=== PATIENT | male | born 1985 | race Two or more races ===

== ENCOUNTER 2021-11-06 01:06 | Emergency (ER) | payer SELFPAY ==
[2021-11-06] MEDS ORDERED: Ondansetron 4 MG/2 ML SDV IVPUSH ONE (01:33)
[2021-11-06] MEDS ORDERED: Sodium Chloride 0.9% 1,000 ML IV SCH (01:45)
== END 2021-11-06 02:34 | disposition home or self-care (01) ==
LOC: JD.ED 01:06
DX: S00.03XA Contusion of scalp, initial encounter (principal); F10.129 Alcohol abuse with intoxication, unspecified; Z72.0 Tobacco use; W00.0XXA Fall on same level due to ice and snow, initial encounter
CPT/HCPCS: 70450; 70450-26; 99284-25

== ENCOUNTER 2023-03-17 15:19 | Emergency (ER) | payer SELFPAY ==
[2023-03-17] MEDS ORDERED: Diphtheria,Pertussis(Acell),Tetanus Vaccine 0.5 ML Syringe IM ONE (16:16)
[2023-03-17] MEDS ORDERED: Lidocaine 1% 10 ML MDV INJECT ONE (16:16)
== END 2023-03-17 17:45 | disposition home or self-care (01) ==
LOC: JD.ED 15:19
DX: S01.511A Laceration without foreign body of lip, initial encounter (principal); Z86.16 Personal history of COVID-19; Z23 Encounter for immunization; W26.8XXA Contact with other sharp object(s), not elsewhere classified, initial encounter; Y99.0 Civilian activity done for income or pay
CPT/HCPCS: 12011; 90471; 90715; 99282-25; J3490

== ENCOUNTER 2023-04-30 20:16 | Emergency (ER) | payer OTHER ==
[2023-04-30] MEDS ORDERED: Ondansetron 8 MG in Sodium Chloride 0.9% 50 ML IV ONE (20:28)
[2023-04-30] MEDS ORDERED: HYDROmorphone 0.5 MG/0.5 ML Syringe IVPUSH ONE (20:28)
[2023-04-30] MEDS ORDERED: Naloxone 0.4 MG/ML SDV IVPUSH PRN (20:28)
[2023-04-30] MEDS ORDERED: Ondansetron 4 MG/2 ML SDV ONE (20:31)
[2023-04-30 20:42] LABS: BASOPHILS ABSOLUTE AUTO 0.11 K/mm3 (0.01-0.08); BASOPHILS PERCENT AUTO 1.3 % (0.1-1.2); EOSINOPHILS ABSOLUTE AUTO 0.34 K/mm3 (0.04-0.54); EOSINOPHILS PERCENT AUTO 4.2 (0.8-7.0); HEMATOCRIT 41.3 % (40.1-51.0); IMMATURE GRAN ABSOLUTE AUTO 0.05 K/mm3 (0.00-0.10); IMMATURE GRAN PERCENT AUTO 0.6 % (<=1.0); LYMPHOCYTES ABSOLUTE AUTO 2.96 K/mm3 (1.32-3.57); LYMPHOCYTES PERCENT AUTO 36.2 % (21.8-53.1); MEAN CORPUSCULAR HEMOGLOBIN 32.6 pg (25.7-32.2); MEAN CORPUSCULAR HGB CONC 33.9 g/dl (32.2-35.5); MEAN PLATELET VOLUME 9.3 fl (9.4-12.3); MONOCYTES ABSOLUTE AUTO 0.91 K/mm3 (0.30-0.82); MONOCYTES PERCENT AUTO 11.1 % (5.3-12.2); NEUTROPHILS PERCENT AUTO 46.6 % (34.0-67.9); PLATELET COUNT,PLT 254 K/mm3 (163-337); WHITE BLOOD CELL COUNT,WBC 8.17 K/mm3 (4.23-9.07)
[2023-04-30] MEDS ORDERED: Iopamidol 612 MG/ML 100 ML Bottle IVPUSH ONE (20:56)
[2023-04-30 20:58] LABS: INR 1.01; PROTHROMBIN TIME 10.8 SECONDS (9.7-12.0)
[2023-04-30 21:03] LABS: A/G RATIO 1.1 (1-2); ALBUMIN 3.8 g/dl (3.4-5.0); ANION GAP 13.9 (5-15); BILIRUBIN TOTAL 0.3 mg/dL (0.2-1.0); EST CRCL DRUG DOSING (CG) 96.9 mL/min; PROTEIN TOTAL,TP 7.4 g/dl (6.4-8.2)
[2023-04-30 21:10] LABS: POTASSIUM,K 3.9 mEq/L (3.5-5.1)
[2023-04-30] MEDS ORDERED: Lactated Ringers 2,000 ML IV ONE (21:18)
[2023-04-30 21:32] LABS: APPEARANCE,URINE CLEAR (Clear); BILIRUBIN,URINE NEGATIVE (Negative); COLOR,URINE YELLOW (Yellow); GLUCOSE,URINE NEGATIVE (Negative); KETONES,URINE NEGATIVE (Negative); LEUKOCYTE ESTERASE,URINE NEGATIVE (Negative); NITRITE,URINE NEGATIVE (Negative); OCCULT BLOOD,URINE NEGATIVE (Negative); PROTEIN,URINE NEGATIVE (Negative); UROBILINOGEN,URINE 0.2 (0.2-1.0)
[2023-04-30 21:46] LABS: BACTERIA,URINE OCCASIONAL /hpf (FEW); MUCUS,URINE FEW /hpf (FEW); RBC,URINE 0-5 /hpf (0-5); SQUAMOUS EPITHELIAL CELLS,UR NOT SEEN /hpf (0-5); WBC,URINE 0-5 /hpf (0-5)
[2023-04-30 21:50] LABS: BARBITURATE SCREEN,URINE NEGATIVE (CUTOFF=200); BENZODIAZEPINES SCREEN,URINE NEGATIVE (CUTOFF=150); BUPRENORPHINE SCREEN,URINE NEGATIVE (CUTOFF=10); METHADONE SCREEN, URINE NEGATIVE (CUT0FF=200); METHAMPHETAMINES SCREEN, URINE NEGATIVE (CUTOFF=500); OXYCODONE SCREEN,URINE NEGATIVE (CUT0FF=100); PROPOXYPHENE SCREEN,URINE NEGATIVE (CUTOFF=300); THC SCREEN,URINE 20 NG/ML NEGATIVE (CUTOFF=50)
[2023-04-30 21:52] LABS: AMPHETAMINES SCREEN, URINE NEGATIVE (CUTOFF=500)
[2023-04-30] MEDS ORDERED: Lidocaine 1% 10 ML MDV INJECT ONE (22:06)
[2023-04-30] MEDS: Lidocaine/EPINEPHrine/Tetracaine Soln 1 ML TOP ONE (22:53)
[2023-05-01] MEDS ORDERED: HYDROmorphone 0.5 MG/0.5 ML Syringe IVPUSH ONE ×2 (00:52→04:10)
[2023-05-01] MEDS ORDERED: Lidocaine 1% 50 ML MDV INJECT ONE (01:33)
[2023-05-01] MEDS ORDERED: Lidocaine 1% 20 ML MDV ONE (02:52)
[2023-05-01] MEDS ORDERED: Lidocaine 1% 20 ML MDV INJECT ONE (06:13)
[2023-05-01] MEDS: Lidocaine/EPINEPHrine/Tetracaine Soln 1 ML TOP ONE (06:16)
== END 2023-05-01 05:40 | disposition home or self-care (01) ==
LOC: JD.ED 20:16
DX: S05.42XA Penetrating wound of orbit with or without foreign body, left eye, initial encounter (principal); S51.812A Laceration without foreign body of left forearm, initial encounter; S40.812A Abrasion of left upper arm, initial encounter; S80.212A Abrasion, left knee, initial encounter; Z86.16 Personal history of COVID-19; V29.99XA Rider (driver) (passenger) of other motorcycle injured in unspecified traffic accident, initial encounter
CPT/HCPCS: 12002; 12014; 36415; 70450; 70486; 71260; 72125; 72128; 72131; 73080; 73562; 73620; 74177; 80053; 80306; 80307; 81001; 82150; 83605; 85025; 85610; 86850; 86900; 86901; 96365; 96375; 96376; 99284; J1170; J2405; J3490; J7120; Q9967

== ENCOUNTER 2023-05-10 10:54 | Day surgery (SDC) | payer OTHER ==
[~2023-05-10 10:54] MED LIST: Lactated Ringers 1,000 ML IV SCH; Sodium Chloride 0.9% 10 ML Syringe FLUSH PRN; Sodium Chloride 0.9% 10 ML Syringe FLUSH SCH
[2023-05-10] MEDS ORDERED: Lidocaine 1% 10 ML MDV ONE (11:04)
[2023-05-10] MEDS ORDERED: Bupivacaine 0.5%/EPINEPHrine 1:200,000 50 ML MDV ONE (11:05)
[2023-05-10] MEDS ORDERED: Midazolam 1 MG/ML 2 ML SDV ONE (11:34)
[2023-05-10] MEDS ORDERED: fentaNYL 100 MCG/2 ML SDV ONE (11:34)
[2023-05-10] MEDS ORDERED: Propofol 200 MG/20 ML SDV ONE ×2 (11:35→12:59)
[2023-05-10] MEDS ORDERED: Lidocaine 1% 6 ML ONE (11:37)
[2023-05-10] MEDS ORDERED: ceFAZolin 2 GM Vial ONE (12:49)
[2023-05-10] MEDS ORDERED: Ondansetron 4 MG/2 ML SDV ONE (13:34)
== END 2023-05-10 14:45 | disposition home or self-care (01) ==
LOC: JD.SDS 10:54
PROVIDERS: ATTEND Specialist
DX: S51.822A Laceration with foreign body of left forearm, initial encounter (principal); K21.9 Gastro-esophageal reflux disease without esophagitis; F41.9 Anxiety disorder, unspecified; F32.A Depression, unspecified; E03.9 Hypothyroidism, unspecified; F17.210 Nicotine dependence, cigarettes, uncomplicated; Z79.2 Long term (current) use of antibiotics; Z79.899 Other long term (current) drug therapy; V29.99XA Rider (driver) (passenger) of other motorcycle injured in unspecified traffic accident, initial encounter
CPT/HCPCS: 10120; 76000; J0690; J2250; J2405; J2704; J3010; J3490; J7120